=== PATIENT | female | born 1955 | race Caucasian/White ===

== ENCOUNTER 2025-09-08 11:44 | Outpatient (CLI) | payer BC, SELFPAY | END 2025-09-08 11:45 | disposition home or self-care (01) | LOC: OP CLINIC 11:51 | PROVIDERS: PCP Family Medicine; Visit Provider Internal Medicine Gastroenterology | DX: Z53.9 Procedure and treatment not carried out, unspecified reason (principal) ==

== ENCOUNTER 2025-09-22 11:36 | Outpatient (CLI) | payer BC, SELFPAY ==
--- NOTE | 2025-09-22 13:29 | P.ANES_ITS ---
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
--- NOTE | 2025-09-22 13:29 | W.ANESCHARGE ---
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
--- NOTE | 2025-09-22 13:36 | W.ANESCHARGE ---
Anesthesia Charges Start Date/Time Anesthesia Start Date: 09/22/25 Anesthesia Start Time: 12:39 Stop Date/Time Anesthesia Stop Date: 09/22/25 Anesthesia Stop Time: 13:30 Summary Extremes of Age - Over 70 or under 1: MDA Coding CPT Codes CPT Codes: ANES UPR LWR GI NDSC PX - 47014 ([id number]) QK - SAP ABAP DEVELOPER 2-4 CNCRNT ANES PROC, QX - AGRICULTURAL EXTENSION EDUCATOR SVC W/ MD MED DIRECTION, P3 - PATIENT W/SEVERE SYS DISEASE Additional Codes: Summary - Extremes of Age - Over 70 or under 1: MDA ([id number])
== END 2025-09-22 11:37 | disposition home or self-care (01) ==
LOC: OP CLINIC 11:37
PROVIDERS: PCP Family Medicine; Visit Provider Internal Medicine Gastroenterology
DX: R10.13 Epigastric pain (principal); R19.7 Diarrhea, unspecified; K31.89 Other diseases of stomach and duodenum; R63.4 Abnormal weight loss; R13.10 Dysphagia, unspecified
CPT/HCPCS: 00813; 43239; 45380; 99100; J2704; J3490